=== PATIENT | female | born 1995 | race Two or more races ===

== ENCOUNTER 2025-01-13 10:08 | Emergency (ER) | payer BC ==
[~2025-01-13] VITALS: Ht 154.9 cm; Wt 74.8 kg
[2025-01-13] MEDS ORDERED: KETOROLAC TROMETHAMINE INJ 30 MG/ML VIAL ONE (10:39)
[2025-01-13] MEDS: KETOROLAC TROMETHAMINE INJ 30 MG/ML VIAL IM ONE (10:48)
[2025-01-13 12:05] VITALS: BP 126/75; TEMP 97.7; O2SAT 98
== END 2025-01-13 12:09 | disposition home or self-care (01) ==
LOC: ER 10:17
DX: S43.015A Anterior dislocation of left humerus, initial encounter (principal); X50.0XXA Overexertion from strenuous movement or load, initial encounter; Y93.89 Activity, other specified; Y92.098 Other place in other non-institutional residence as the place of occurrence of the external cause; Y99.8 Other external cause status
CPT/HCPCS: 99284; 23650; 73030 ×2; J1885